=== PATIENT | male | born 1945 | race Caucasian/White ===

== ENCOUNTER → 2019-05-27 | Outpatient (CLI) | payer MEDICARE ==
[~2019-05-27] MED LIST: AMLO10; Aspirin EC81 MG; CHOL10002 PO; DOCU100 PO; HYDCHL25 PO; MELATONIN10 M1 PO; METROGEL55 GM; Mirapex0.25 MG; NEBI10; OXYACE5T PO; Simvastatin20 MG; TRAZ100; VITAMIN E400 UNI1 PO; VOLTAREN100 GM; Vitamin A10000 UNIT PO; Zovirax Cream 5%2 GM
== END | disposition home or self-care (01) ==
LOC: LAB 17:35 → LAB SHORT 17:35
DX: B01.9 Varicella without complication (principal); L23.9 Allergic contact dermatitis, unspecified cause
CPT/HCPCS: 87529; 87798

== ENCOUNTER → 2021-08-30 | Outpatient (CLI) | payer MEDICARE | END | disposition home or self-care (01) | LOC: LAB SHORT 08:45 → LAB 08:45 | DX: R19.7 Diarrhea, unspecified (principal) | CPT/HCPCS: 87015; 87045; 87046; 87205; 87899 ==

== ENCOUNTER 2024-04-30 11:17 | Inpatient (IN) | payer MEDICARE ==
[~2024-04-30] VITALS: Ht 177.8 cm; Wt 78.9 kg
[2024-04-30 12:23] LABS: Bun/Creatinine Ratio 14.9 (12.0-20.0); Calcium, Blood 9.1 mg/dL (8.5-10.1); Creatinine, Blood 1.54 mg/dL (0.60-1.20); Potassium, Blood 4.1 mmol/L (3.5-5.5)
[2024-04-30] MEDS ORDERED: Oxybutynin Chlo15 MG PO (12:46)
[2024-04-30] MEDS ORDERED: PRAMIPEXOLE D0.25 M1 PO (12:46)
[2024-04-30] MEDS ORDERED: DONEPEZIL HCL5 M2 PO (12:46)
[2024-04-30] MEDS ORDERED: TAMSULOSIN HCL0.4 M1 PO (12:46)
[2024-04-30] MEDS ORDERED: METOPROLOL SUCC25 MG PO (12:46)
[2024-04-30] MEDS ORDERED: FINA5 PO (12:46)
[2024-04-30] MEDS ORDERED: Prinivil10 MG PO (12:47)
[2024-04-30] MEDS ORDERED: TRAZ100 PO (12:47)
[2024-04-30] MEDS ORDERED: MEMA10 PO (12:47)
[2024-04-30] MEDS ORDERED: ZOLOFT25 MG PO (12:47)
[2024-04-30] MEDS ORDERED: AMLODIPINE BESY10 MG PO (12:47)
[2024-04-30] MEDS ORDERED: Ondansetron HCl 2 MG / ML 2ML Vial IV PRN (14:25)
[2024-04-30] MEDS ORDERED: Bisacodyl 10 MG Supp PR PRN (14:25)
[2024-04-30] MEDS ORDERED: Naloxone HCl 0.4MG / ML 1ML Vial IV PRN (14:25)
[2024-04-30] MEDS ORDERED: HYDROmorphone HCl/Pf 1MG SYR IV PRN (14:25)
[2024-04-30] MEDS ORDERED: Acetaminophen 325 MG TABLET PO PRN (14:25)
[2024-04-30] MEDS ORDERED: TraZODone HCl 50 MG Tab PO PRN (14:30)
[2024-04-30] MEDS ORDERED: HYDROcodone 5-APAP 325 TAB PO PRN (14:30)
[2024-04-30] MEDS ORDERED: DiphenhydrAMINE HCL 25 MG Cap PO PRN (14:30)
[2024-04-30] MEDS ORDERED: FLU VACC TS2024-25(6MOS UP)/PF 45 MCG/0.5 ML SYRINGE IM ONE (14:30)
[2024-04-30] MEDS ORDERED: TraZODone HCl 100 MG Tab PO PRN (14:35)
[2024-04-30] MEDS ORDERED: HYDROmorphone HCl/Pf 1MG SYR ONE (14:36)
[2024-04-30 15:30] VITALS: BP 164/108
[2024-04-30] MEDS ORDERED: Trospium Chloride 20 MG Tab PO SCH (16:30)
--- NOTE | 2024-04-30 17:59 | NUR ---
ADMISSION: REPORT RECEIVED FROM ED. PT TO UNIT AT 1530, A/O, VSS. SENSATION INTACT TO R LEG, ABLE TO WIGGLE TOES. PT MEDICATED FOR PAIN. ORIENTED TO ROOM AND CALL LIGHT. NO ACUTE CONCERNS. PLAN IS FOR NPO AT 0000 AND SURGERY TOMORROW
[2024-04-30 20:06] VITALS: BP 166/90
[2024-04-30] MEDS ORDERED: Famotidine 10 MG/ML 2ML Vial IV SCH (21:00)
[2024-04-30] MEDS ORDERED: Docusate Sodium 100 MG Cap PO SCH (21:00)
[2024-05-01] VITALS (20 sets, daily range): BP systolic 122–177; BP diastolic 72–96
[2024-05-01] MEDS ORDERED: NS 1,000 ML IV SCH
[2024-05-01] MEDS ORDERED: Tranexamic Acid 1,000 MG in NS 100 ML IV SCH (06:00)
[2024-05-01] MEDS ORDERED: CeFAZolin Sodium 2,000 MG in NS 100 ML IV SCH ×2 (06:00→18:00)
[2024-05-01] MEDS ORDERED: Vancomycin HCL 1,000 MG in NS 250 ML IV SCH ×2 (06:00→22:00)
--- NOTE | 2024-05-01 06:22 | NUR ---
SHIFT SUMMARY PT ALERT ORIENTED CALLS APPROPRIATELY. 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 C/O RT KNEE PAIN MEDICATED WITH NORCO AND DILAUDID WITH GOOD PAIN RELIEF. REMAINS ON NS AT 125. BP IS SLIGHTLY HIGH AT 166/90 AND 170/91. HES BEEN NPO SINCE MIDNIGHT FOR HIS SURGERY TODAY. CONTINUES ON BEDREST RESTING IN BED AT THIS TIME WITH CALL LIGHT IN REACH
[2024-05-01 06:40] LABS: BASOPHILS ABSOLUTE AUTO 0.02 K/mm3 (0.00-0.23); BASOPHILS PERCENT AUTO 0 % (0-2); EOSINOPHILS ABSOLUTE AUTO 0.09 K/mm3 (0.00-0.68); EOSINOPHILS PERCENT AUTO 1 % (0-6); Hematocrit 30.1 % (37.0-53.0); Hemoglobin 9.9 g/dL (13.5-17.5); IMMATURE GRAN ABSOLUTE AUTO 0.02 K/mm3 (0.00-0.10); IMMATURE GRAN PERCENT AUTO 0 % (0-1); LYMPHOCYTES ABSOLUTE AUTO 0.75 K/mm3 (0.84-5.20); LYMPHOCYTES PERCENT AUTO 11 % (21-46); MONOCYTES ABSOLUTE AUTO 0.68 K/mm3 (0.16-1.47); MONOCYTES PERCENT AUTO 10 % (4-13); Mean Corpuscular HGB Conc 32.9 g/dL (31.5-36.5); Mean Corpuscular Volume 85 fL (80-100); Mean Platelet Volume 9.6 fL (9.1-12.4); NEUTROPHILS ABSOLUTE AUTO 5.32 K/mm3 (1.96-9.15); NEUTROPHILS PERCENT AUTO 77 % (41-73); Platelet Count 150 K/mm3 (150-400); RDW Coefficient Variation 13.4 % (11.7-14.2); RDW Standard Deviation 41.6 fL (35.1-46.3); Red Blood Cell Count 3.54 M/mm3 (4.30-5.90); White Blood Cell Count 6.88 K/mm3 (4.00-11.30)
[2024-05-01 07:08] LABS: Albumin, Blood 2.8 g/dL (3.4-5.0); Albumin/Globulin Ratio 1.2 (0.8-1.8); Bilirubin, Total 1.1 mg/dL (0.1-1.0); Bun/Creatinine Ratio 16.1 (12.0-20.0); Calcium, Blood 8.4 mg/dL (8.5-10.1); Creatinine, Blood 1.55 mg/dL (0.60-1.20); Globulin, Blood 2.3 g/dL (2.2-4.0); Potassium, Blood 3.7 mmol/L (3.5-5.5); Total Protein, Blood 5.1 g/dL (6.4-8.2)
[2024-05-01] MEDS ORDERED: Finasteride 5 MG Tab PO SCH (09:00)
[2024-05-01] MEDS ORDERED: AmLODIPine Besylate 5 MG Tab PO SCH (09:00)
[2024-05-01] MEDS ORDERED: Pramipexole DI-HCL 0.25 MG Tab PO SCH (09:00)
[2024-05-01] MEDS ORDERED: Sertraline HCl 50 MG Tab PO SCH (09:00)
[2024-05-01] MEDS ORDERED: Memantine HCL 5 MG Tab PO SCH (09:00)
[2024-05-01] MEDS ORDERED: Donepezil HCl 5 MG Tab PO SCH (09:00)
[2024-05-01] MEDS ORDERED: Tamsulosin HCl 0.4 MG Cap PO SCH (09:00)
[2024-05-01] MEDS ORDERED: Metoprolol Succinate 25 MG TABCR PO SCH (09:00)
[2024-05-01] MEDS ORDERED: Lisinopril 10 MG Tab PO SCH (09:00)
[2024-05-01] MEDS ORDERED: Bupivacaine 0.5% HCl 5 MG/ML 30MLVIAL ONE (09:11)
[2024-05-01] MEDS ORDERED: Lactated Ringer's 1,000 ML IV ONE (09:29)
--- NOTE | 2024-05-01 09:39 | NUR ---
PATIENT TRANSFERRED OFF UNIT FOR PROCEDURE
[2024-05-01] MEDS ORDERED: EpiNEPhrine 1 MG/1 ML 1ML Vial ONE (09:48)
[2024-05-01] MEDS ORDERED: Naproxen 500 MG Tab PO PRN (09:55)
[2024-05-01] MEDS ORDERED: Ondansetron HCl 2 MG / ML 2ML Vial IV PRN (09:55)
--- NOTE | 2024-05-01 09:56 | NUR ---
PT ARRIVES TO PACU FOR PREOP CARE VIA BED AT 0945. PLEASANT & COOPERATIVE. SURGICAL PACK COMPLETE. FEBRILE 99.3/HYPERTENSIVE. LR AT TKO. SURGICAL HAT/SURGICAL SLEEVE TO LLE/BP CUFF PLACED. WARM BLANKETS PLACED. NO COMPLAINTS.
[2024-05-01] MEDS ORDERED: Ondansetron 4 MG TAB PO PRN (10:00)
[2024-05-01] MEDS ORDERED: HYDROmorphone HCl/Pf 1MG SYR IV PRN (10:00)
[2024-05-01] MEDS ORDERED: Bisacodyl 10 MG Supp PR PRN (10:00)
[2024-05-01] MEDS ORDERED: FLU VACC TS2024-25(6MOS UP)/PF 45 MCG/0.5 ML SYRINGE IM SCH (10:00)
[2024-05-01] MEDS ORDERED: propofoL 20 ML IV ONE (10:03)
[2024-05-01] MEDS ORDERED: FentaNYL Citrate 50 MCG/ML 2 ML Injection ONE (10:03)
[2024-05-01] MEDS ORDERED: Midazolam HCl 1MG / ML 2ML Vial ONE (10:03)
--- NOTE | 2024-05-01 10:03 | NUR ---
PT TO OR 4 VIA BED IN STABLE CONDITION AT 1005.
[2024-05-01] MEDS ORDERED: Naloxone HCl 0.4MG / ML 1ML Vial IV PRN (10:05)
[2024-05-01] MEDS ORDERED: Magnesium Hydroxide Conc 10 ML UDC PO PRN (10:05)
[2024-05-01] MEDS ORDERED: Metoclopramide HCl 10 MG Tab PO PRN (10:05)
[2024-05-01] MEDS ORDERED: OxyCODONE HCL 5 MG TAB PO PRN (10:05)
[2024-05-01] MEDS ORDERED: Acetaminophen 325 MG TABLET PO PRN (10:05)
[2024-05-01] MEDS ORDERED: Phenylephrine HCl 100 MCG/ML-NS 10MLSYR (1MG/10ML) ONE (10:10)
[2024-05-01] MEDS ORDERED: Dexamethasone Sod Phos 10 MG/ML 1ML VIAL ONE (10:14)
[2024-05-01] MEDS ORDERED: Ondansetron HCl 2 MG / ML 2ML Vial ONE (10:14)
[2024-05-01] MEDS ORDERED: HYDROmorphone HCl/Pf 1MG SYR ONE ×2 (10:53→11:14)
[2024-05-01] MEDS ORDERED: Ketorolac Tromethamine 30mg Vial ONE (12:08)
--- NOTE | 2024-05-01 13:52 | NUR ---
RETURN TO UNIT PATIENT TRANSFERRED TO UNIT FROM PACU AT APPROX 1345. PATIENT LETHARGIC, EASILY AROUSABLE WITH VERBAL STIMULI. VSS. ON 2L VIA NC, SATs >92%. RR SHALLOW. ENCOURAGED TO COUGH AND DEEP BREATH. S/P R INTERMEDULLARY RODDING. DRESSING C/D/I. PPP. CAP REFILL <3 SECONDS. DENIES PAIN. DENIES NAUSEA - WATER AND SMALL SNACKS PROVIDED. CALL LIGHT IN REACH. IVF INFUSING PER EMAR.
[2024-05-01] MEDS ORDERED: NS KCl 20mEq 1,000 ML IV SCH (14:00)
[2024-05-01] MEDS ORDERED: Ketorolac Tromethamine 15mg Vial IV SCH (18:00)
--- NOTE | 2024-05-01 18:32 | NUR ---
SHIFT SUMMARY NO ACUTE CHANGES SINCE PREVIOUS DOCUMENTATION. PATIENT WITH HX OF DEMENTIA - IS MUCH MORE FORGETFUL POST OP. REQUIRES FREQUENT REDIRECTION, ATTEMPTING TO AMBULATE OUT OF BED WITHOUT STAFF PRESENT. PATIENT MOVED FROM ROOM 222 TO ROOM 215 FOR CLOSER MONITORING. BED ALARM/CHAIR ALARM IN PLACE. S/P R RODDING. VSS. CURRENTLY ON 2L VIA NC, SATs 90-94%. ENCOURAGING COUGHING AND DEEP BREATHING. DRESSINGS C/D/I. TOLERATING PO INTAKE - SALINE LOCKED. PAIN TOLERABLE PER EMAR WITH SCHEDULED MEDICATIONS. WORKED WITH PHYSICAL THERAPY TODAY - RECOMMENDING SNF FOR DC DUE TO DIFFICULTY FOLLOWING TOE TOUCH WEIGHT BEARING STATUS AND MENTATION. UP WITH 1P ASSIST FWW. HAS NOT VOIDED YET - BLADDER SCAN PERFORMED SHOWING 220ML. CALL LIGHT IN REACH. CURRENTLY IN RECLINER CHAIR - CHAIR ALARM ON. WILL CONTINUE TO MONITOR AND REPORT TO ONCOMING RN.
[2024-05-01] MEDS ORDERED: Docusate Sodium 100 MG Cap PO SCH (21:00)
[2024-05-02 00:31] VITALS: BP 143/85
[2024-05-02 03:30] VITALS: BP 138/79
--- NOTE | 2024-05-02 04:23 | NUR ---
SHIFT SUMMARY PATIENT NEEDS TO REMINDED FREQUENTLY TO USE THE CALL LIGHT. IS IMPULSIVE AND ABLE TO STAND EASILY ON SURGICAL LEG. NEEDS FREQUENT REMINDERS TO STEP GENTLY ON FOOT. THEN HE HITS CALL LIGHT ACCIDENTLY. VOIDED SEVERAL TIMES IN BR, UNMEASURED. DECLINED PAIN MEDS AND STOOL SOFTENER
[2024-05-02 06:14] LABS: BASOPHILS ABSOLUTE AUTO 0.01 K/mm3 (0.00-0.23); BASOPHILS PERCENT AUTO 0 % (0-2); EOSINOPHILS ABSOLUTE AUTO 0.01 K/mm3 (0.00-0.68); EOSINOPHILS PERCENT AUTO 0 % (0-6); Hematocrit 25.9 % (37.0-53.0); Hemoglobin 8.3 g/dL (13.5-17.5); IMMATURE GRAN ABSOLUTE AUTO 0.06 K/mm3 (0.00-0.10); IMMATURE GRAN PERCENT AUTO 1 % (0-1); LYMPHOCYTES ABSOLUTE AUTO 0.47 K/mm3 (0.84-5.20); LYMPHOCYTES PERCENT AUTO 5 % (21-46); MONOCYTES ABSOLUTE AUTO 0.75 K/mm3 (0.16-1.47); MONOCYTES PERCENT AUTO 8 % (4-13); Mean Corpuscular HGB 27.4 pg (26.0-34.0); Mean Corpuscular Volume 86 fL (80-100); NEUTROPHILS ABSOLUTE AUTO 7.81 K/mm3 (1.96-9.15); NEUTROPHILS PERCENT AUTO 86 % (41-73); Platelet Count 166 K/mm3 (150-400); RDW Coefficient Variation 13.7 % (11.7-14.2); RDW Standard Deviation 42.4 fL (35.1-46.3); Red Blood Cell Count 3.03 M/mm3 (4.30-5.90); White Blood Cell Count 9.11 K/mm3 (4.00-11.30)
[2024-05-02 06:43] LABS: Bun/Creatinine Ratio 19.3 (12.0-20.0); Calcium, Blood 7.9 mg/dL (8.5-10.1); Creatinine, Blood 1.92 mg/dL (0.60-1.20); Magnesium, Blood 2.6 mg/dL (1.6-2.4); Potassium, Blood 4.7 mmol/L (3.5-5.5)
[2024-05-02 07:40] VITALS: BP 152/78
[2024-05-02] MEDS ORDERED: Aspirin 325 MG Tab PO SCH (09:00)
[2024-05-02] MEDS ORDERED: Aspirin 81 MG Chew PO SCH (09:00)
--- NOTE | 2024-05-02 10:09 | NUR ---
MORNING NOTE THIS RN ASSUMED CARE AT APPROX 0715. PATIENT MUCH MORE ALERT WHEN COMPARED TO YESTERDAY POST OP. ABLE TO ANSWER QUESTIONS APPROPRIATELY. REMAINS FORGETFUL - REQUIRING REORIENTATION TO CURRENT SITUATION AND EVENTS LEADING TO ADMISSION. VSS. TOLERATING ROOM AIR, SATs >90%. POD 1 R HIP RODDING. DRESSINGS C/D/I. PAIN TOLERABLE WITH SCHEDULED MEDICATION. WORKED WITH PHYSICAL THERAPY YESTERDAY - IS UP WITH 1P ASSIST FWW GB. TOE TOUCH WEIGHT BEARING STATUS RLE. DENIED SITTING IN RECLINER CHAIR FOR BREAKFAST THIS MORNING. CALL LIGHT IN REACH.
[2024-05-02 14:48] VITALS: BP 135/71
--- NOTE | 2024-05-02 17:02 | NUR ---
SHIFT SUMMARY NO ACUTE CHANGES SINCE MORNING NOTE. PATIENT CONTINUES TO HAVE EPISODES OF INCREASED CONFUSION - EASILY REDIRECTABLE. UP IN RECLINER CHAIR MOST OF THE DAY - CHAIR ALARM IN PLACE. POD 1 RLE ABHI - MD SLATER TO BEDSIDE THIS AFTERNOON, DRESSINGS CHANGED - C/D/I. TOLERATING PO INTAKE - RECEIVED VERBAL ORDER TO RESTART NS FROM MD HURTADO. IVF INFUSED FOR MOST OF THE AFTERNOON - SALINE LOCKED AT THIS TIME. AMBULATING WITH 1P ASSIST FWW GB - IS FOLLOWING TOE TOUCH WEIGHT BEARING STATUS WELL. AMBULATED IN HALLWAY AND UP TO RESTROOM. VOIDING. CALL LIGHT IN REACH. WILL CONTINUE TO MONITOR AND REPORT TO ONCOMING RN.
[2024-05-02 19:20] VITALS: BP 154/82
[2024-05-03 03:15] VITALS: BP 155/88
--- NOTE | 2024-05-03 05:04 | NUR ---
SHIFT SUMMARY AOX3. FORGETFUL OF PLACE & SPECIFIC SURGERY. IMPULSIVE. PLEASENT & REDIRECTABLE. POD2- R FEMUR NAILING. AQUACEL TO R HIP, C/D/I. GAUZE, ABD TO R KNEE C/D/I. PT MOVES RLE FREQUENTLY, "DOING MY EXERCISES" PER PT HE LIFTS LEG UP & DOWN OFF BED. CAP REFILL <3, DENIES N/T, STRONG PULSES. REPORTS /10 PAIN IN RLE T/O NIGHT UNTIL THIS AM ITS 01/26. STATES RLE FEELS STIFF, EDUCATED PT ON THE IMPORTANCE OF MEDICATING PRIOR TO HIGH PAIN LEVEL TO PROMOTE HEALING. MEDICATED 2x W/SCHEDULED IV TORADOL & WILL REASSESS NEED FOR FURTHER MEDICATION THIS AM. VOIDED MULT x IND w/URINAL. CALL LIGHT & BED ALARM IN PLACE.
[2024-05-03 07:39] VITALS: BP 139/77
[2024-05-03 07:57] LABS: BASOPHILS ABSOLUTE AUTO 0.02 K/mm3 (0.00-0.23); BASOPHILS PERCENT AUTO 0 % (0-2); EOSINOPHILS PERCENT AUTO 3 % (0-6); Hemoglobin 7.6 g/dL (13.5-17.5); IMMATURE GRAN ABSOLUTE AUTO 0.05 K/mm3 (0.00-0.10); IMMATURE GRAN PERCENT AUTO 1 % (0-1); LYMPHOCYTES ABSOLUTE AUTO 0.64 K/mm3 (0.84-5.20); LYMPHOCYTES PERCENT AUTO 11 % (21-46); MONOCYTES ABSOLUTE AUTO 0.56 K/mm3 (0.16-1.47); MONOCYTES PERCENT AUTO 10 % (4-13); Mean Corpuscular HGB 28.3 pg (26.0-34.0); Mean Corpuscular Volume 86 fL (80-100); Mean Platelet Volume 9.5 fL (9.1-12.4); NEUTROPHILS ABSOLUTE AUTO 4.41 K/mm3 (1.96-9.15); NEUTROPHILS PERCENT AUTO 75 % (41-73); Platelet Count 138 K/mm3 (150-400); RDW Coefficient Variation 13.9 % (11.7-14.2); RDW Standard Deviation 42.4 fL (35.1-46.3); Red Blood Cell Count 2.69 M/mm3 (4.30-5.90); White Blood Cell Count 5.88 K/mm3 (4.00-11.30)
[2024-05-03 08:29] LABS: Albumin, Blood 2.4 g/dL (3.4-5.0); Bilirubin, Total 0.9 mg/dL (0.1-1.0); Bun/Creatinine Ratio 21.5 (12.0-20.0); Calcium, Blood 7.8 mg/dL (8.5-10.1); Creatinine, Blood 1.49 mg/dL (0.60-1.20); Globulin, Blood 2.5 g/dL (2.2-4.0); Potassium, Blood 4.1 mmol/L (3.5-5.5); Total Protein, Blood 4.9 g/dL (6.4-8.2)
[2024-05-03] MEDS ORDERED: Famotidine 20 MG Tab PO SCH (08:55)
[2024-05-03 14:22] VITALS: BP 134/76
--- NOTE | 2024-05-03 17:28 | NUR ---
SHIFT SUMMARY PT IS POD2 FOR R HIP NAILING. DRESSINGS C/D/I, MILTON HOSE IN PLACE. PT IS A 1 ASST W/ THE FWW AND GB, IS IMPULSIVE/FORGETFUL AND GETS OOB/CHAIR WITHOUT CALLING. NEEDS FREQUENT REORIENTATION AND REMINDERS TO FOLLOW WB STATUS. CHAIR/BED ALARM IN PLACE. SURGICAL SITE IS SWOLLEN BUT NOT HOT TO TOUCH, NO REDNESS, PT DENIES PAIN AND HAS NOT REQUIRED PAIN MEDICINE. CIRCULATION INTACT TO RLE. VSS. UPDATE GIVEN TO GEORGES, PT'S DAUGHTER, OVER THE PHONE AFTER PT OK'D. PT TOLERATING PO DIET AND FLUIDS. VOIDING. PLAN FOR POSSIBLE D/C TO SNF. PT CURRENTLY EATING DINNER IN RECLINER W/ CALL LIGHT IN REACH AND CHAIR ALARM ON.
[2024-05-03 18:41] LABS: Hematocrit 26.9 % (37.0-53.0); Hemoglobin 8.7 g/dL (13.5-17.5)
[2024-05-03 19:08] LABS: Percent Saturation 10.6 % (20.0-50.0)
[2024-05-03 19:24] VITALS: BP 154/80
[2024-05-04 03:54] VITALS: BP 155/79
--- NOTE | 2024-05-04 04:05 | NUR ---
SHIFT SUMMARY POD3 R HIP RODDING. ANTERIOR HIP AQUACEL REMAINS C/D/I. DRESSING ON R KNEE REMOVED, CLEANSED, AND REDRESSED W/ AQUACELS THE PATIENT HAD BEEN RUBBING THE EXPOSED STITCHES WITH HIS HANDS. INCISIONS DO NOT HAVE ANY REDDNESS OR SWELLING. VSS. PT SLEPT ON AND OFF T/O THE NIGHT. PT STRUGGLES TO MAINTAIN WEIGHTBEARING STATUS, BUT DOES ATTEMPT TO TOE TOUCH. PT REPORTS MINIMAL PAIN T/O THE NIGHT, MEDICATED WITH TYLENOL ONCE. AMBULATED TO THE BATHROOM MULTIPLE TIMES W/MIN ASSIST. X2 SMALL INCONTINENT LIQUID STOOLS NOTED AND ONE XL CONTINENT BM NOTED. MULTIPLE SMALL VOIDS NOTED. PT REMAINS IMPULSIVE AND ATTEMPTS TO GET OOB W/O CALLING. BED ALARM REMAINED ON T/O THE NIGHT. PT TOLLERATING PO INTAKE W/O N/V. OVERALL, NO ACUTE EVENTS NOTED. PLAN TO TREND LABS AND AWAIT DISCHARGE PLANNING.
[2024-05-04 07:29] VITALS: BP 161/95
[2024-05-04 08:14] LABS: BASOPHILS ABSOLUTE AUTO 0.02 K/mm3 (0.00-0.23); BASOPHILS PERCENT AUTO 0 % (0-2); EOSINOPHILS ABSOLUTE AUTO 0.07 K/mm3 (0.00-0.68); EOSINOPHILS PERCENT AUTO 1 % (0-6); Hematocrit 25.8 % (37.0-53.0); Hemoglobin 8.3 g/dL (13.5-17.5); IMMATURE GRAN ABSOLUTE AUTO 0.05 K/mm3 (0.00-0.10); IMMATURE GRAN PERCENT AUTO 1 % (0-1); LYMPHOCYTES ABSOLUTE AUTO 0.49 K/mm3 (0.84-5.20); LYMPHOCYTES PERCENT AUTO 7 % (21-46); MONOCYTES ABSOLUTE AUTO 0.54 K/mm3 (0.16-1.47); MONOCYTES PERCENT AUTO 8 % (4-13); Mean Corpuscular HGB 27.9 pg (26.0-34.0); Mean Corpuscular HGB Conc 32.2 g/dL (31.5-36.5); Mean Corpuscular Volume 87 fL (80-100); Mean Platelet Volume 9.7 fL (9.1-12.4); NEUTROPHILS ABSOLUTE AUTO 5.87 K/mm3 (1.96-9.15); NEUTROPHILS PERCENT AUTO 83 % (41-73); Platelet Count 188 K/mm3 (150-400); Red Blood Cell Count 2.98 M/mm3 (4.30-5.90); White Blood Cell Count 7.04 K/mm3 (4.00-11.30)
[2024-05-04 08:36] LABS: Albumin, Blood 2.8 g/dL (3.4-5.0); Bilirubin, Total 1.4 mg/dL (0.1-1.0); Bun/Creatinine Ratio 19.7 (12.0-20.0); Calcium, Blood 8.3 mg/dL (8.5-10.1); Creatinine, Blood 1.17 mg/dL (0.60-1.20); Globulin, Blood 2.9 g/dL (2.2-4.0); Potassium, Blood 3.9 mmol/L (3.5-5.5); Total Protein, Blood 5.7 g/dL (6.4-8.2)
[2024-05-04] MEDS ORDERED: Sod Ferric Gluc Complx/Sucrose 125 MG in NS 100 ML IV SCH (11:00)
[2024-05-04 12:58] VITALS: BP 147/97
--- NOTE | 2024-05-04 13:14 | NUR ---
REPORT CALLED TO ALEXI AT [facility] AT 1250. SHE WAS NOTIFIED THAT AMBULANCE TRANSPORT IS SCHEDULED FOR 1330.
--- NOTE | 2024-05-04 16:14 | NUR ---
PRIOR TO DISCHARGE THIS RN SPOKE WITH PT'S DAUGHTER CHITO REGARDING DISCHARGE. SHE EXPRESSED FRUSTRATION THAT SHE HAD NOT BEEN NOTIFIED OF HIS DISCHARGE EARLIER AND WAS CONCERNED ABOUT INSURANCE COVERAGE. THIS RN ANSWERE QUESTIONS, ULTIMATELY SHE STILL REQUESTED A CALL FROM [employer]. DENIZ WAS PROVIDED WITH HER PHONE NUMBER AND RETURNED HER CALL.
== END 2024-05-04 13:54 | disposition home or self-care (01) | DRG 481 ==
LOC: ER 11:17 → SURS 14:22 → ER 05-01 11:00 → SURS 05-01 14:31
PROVIDERS: Emergency Medicine; Family Medicine; Orthopaedic Surgery; ADMIT Family Medicine
PROC: 0QS636Z Reposition Right Upper Femur with Intramedullary Internal Fixation Device, Percutaneous Approach (ICD-10-PCS; principal; 2024-05-01 10:30)
DX: S72.451A Displaced supracondylar fracture without intracondylar extension of lower end of right femur, initial encounter for closed fracture (principal); D62 Acute posthemorrhagic anemia; N13.8 Other obstructive and reflux uropathy; F03.B4 Unspecified dementia, moderate, with anxiety; F03.B3 Unspecified dementia, moderate, with mood disturbance; M97.01XA Periprosthetic fracture around internal prosthetic right hip joint, initial encounter; S72.401A Unspecified fracture of lower end of right femur, initial encounter for closed fracture; Y93.12 Activity, springboard and platform diving; Z88.8 Allergy status to other drugs, medicaments and biological substances; Z88.6 Allergy status to analgesic agent; Z79.899 Other long term (current) drug therapy; Z96.653 Presence of artificial knee joint, bilateral; Z98.890 Other specified postprocedural states; Z95.2 Presence of prosthetic heart valve; I12.9 Hypertensive chronic kidney disease with stage 1 through stage 4 chronic kidney disease, or unspecified chronic kidney disease; N18.30 Chronic kidney disease, stage 3 unspecified; K44.9 Diaphragmatic hernia without obstruction or gangrene; N40.1 Benign prostatic hyperplasia with lower urinary tract symptoms; G47.00 Insomnia, unspecified; G25.81 Restless legs syndrome
CPT/HCPCS: 36415; 73560-RT; 80048; 80053; 82728; 83540; 83550; 83735; 85014; 85018; 85025; 93005; 93010; 94760; 97110; 97116; 97161; 97165; 97530; 97535; 99285-25; A9270; C1713; C1769; J0171; J0690; J1100; J1171; J1885; J2250; J2371; J2405; J2704; J2916; J3010; J3370; J3480; J7030; J7050; J7120

== ENCOUNTER 2024-06-28 10:36 | Day surgery (SDC) | payer MEDICARE ==
[~2024-06-28] VITALS: Ht 177.8 cm; Wt 77.2 kg
[~2024-06-28 10:36] MED LIST changes: +AMLODIPINE BESY10 MG PO; +DONEPEZIL HCL5 M2 PO; +FINA5 PO; +MEMA10 PO; +METOPROLOL SUCC25 MG PO; +Oxybutynin Chlo15 MG PO; +PRAMIPEXOLE D0.25 M1 PO; +Prinivil10 MG PO; +TAMSULOSIN HCL0.4 M1 PO; +TRAZ100 PO; +ZOLOFT25 MG PO
[2024-06-28] MEDS ORDERED: Vancomycin HCL 1,000 MG in NS 250 ML IV SCH (10:55)
[2024-06-28] MEDS ORDERED: CeFAZolin Sodium 2,000 MG VIAL ONE (10:56)
[2024-06-28] MEDS ORDERED: CeFAZolin Sodium 2,000 MG in NS 100 ML IV SCH (11:00)
[2024-06-28] MEDS ORDERED: Lactated Ringer's 1,000 ML IV ONE (11:31)
[2024-06-28] MEDS ORDERED: propofoL 0 ML IV ONE (12:00)
[2024-06-28] MEDS ORDERED: FentaNYL Citrate 50 MCG/ML 2 ML Injection ONE (12:01)
[2024-06-28] MEDS ORDERED: Metoprolol Tartrate 0 ML IV ONE (12:06)
[2024-06-28] MEDS ORDERED: Bupivacaine 0.5% W/EPI 1:200000 SDV 30 ML Vial ONE (12:29)
[2024-06-28] MEDS ORDERED: propofoL 20 ML IV ONE (12:56)
[2024-06-28] MEDS ORDERED: Dexamethasone Sod Phos 10 MG/ML 1ML VIAL ONE (13:49)
[2024-06-28] MEDS ORDERED: Ondansetron HCl 2 MG / ML 2ML Vial ONE (13:49)
--- NOTE | 2024-06-28 14:00 | NUR ---
06/28/24 1400 Janey Glover PT WITH HIGH BP DURING ADMIT, NOTIFIED. DR. MEJIAS SAW PT AND ADMINISTERED MEDICATION. PT PLACED ON MONITOR TO RECHECK BP. 1345 DR. MEJIAS AT BEDSIDE AND PT OK'D TO GO TO OR.
[2024-06-28 14:32] VITALS: BP 148/82
--- NOTE | 2024-06-28 14:35 | NUR ---
06/28/24 1435 Pavithra Hough PT ARRIVES TO SDU A&O, ON RA, VSS. PT DENIES PAIN/NAUSEA. DRESSING TO R KNEE C/D/I. NO VISIBLE SIGNS OF DISTRESS NOTED.
== END 2024-06-28 15:18 | disposition home or self-care (01) ==
LOC: ORSCSDS 10:36
PROVIDERS: Orthopaedic Surgery
PROC: 0SP Lower Joints, Removal (ICD-10-PCS; principal; 2024-06-28 12:00)
DX: M97.11XD Periprosthetic fracture around internal prosthetic right knee joint, subsequent encounter (principal); I12.9 Hypertensive chronic kidney disease with stage 1 through stage 4 chronic kidney disease, or unspecified chronic kidney disease; N18.9 Chronic kidney disease, unspecified; F03.90 Unspecified dementia, unspecified severity, without behavioral disturbance, psychotic disturbance, mood disturbance, and anxiety; Z79.899 Other long term (current) drug therapy
CPT/HCPCS: J0690; J1100; J2405; J2704; J3010; J3370; J7050; J7120